=== PATIENT | male | born 1940 | race Two or more races ===

== ENCOUNTER 2020-01-12 16:08 | Inpatient (IN) | payer MEDICARE, OTHER ==
[~2020-01-12] VITALS: Ht 175.3 cm; Wt 60.8 kg
[2020-01-12 16:39] LABS: Basophils # (auto) 0.1 10 ^3/uL (0-0.2); Basophils % (auto) 0.9 % (0.0-2.0); Eosinophils # (auto) 0.3 10 ^3/uL (0-0.8); Eosinophils % (auto) 4.4 % (0.0-7.0); Hematocrit 36.4 % (41.0-53.0); Hemoglobin 12.3 g/dL (13.5-17.5); Lymphocytes # (auto) 0.8 10 ^3/uL (0.4-5.4); Lymphocytes % (auto) 12.4 % (10.0-50.0); Mean Corpuscular Hemoglobin 32.2 pg (28.0-32.0); Mean Corpuscular Hgb Conc. 33.7 g/dL (32.0-36.0); Mean Corpuscular Volume 95.7 fL (80.0-100.0); Monocytes # (auto) 0.5 10 ^3/uL (0-1.3); Monocytes % (auto) 8.2 % (0.0-12.0); Neutrophils # (auto) 4.6 10 ^3/uL (1.6-8.6); Neutrophils % (auto) 74.1 % (37.0-80.0); Nucleated Red Blood Cells % 0.1 %; Platelet Count (auto) 188 10^3/uL (140-450); Red Cell Distribution Width 14.8 % (11.8-14.3); White Blood Cell 6.2 10^3/uL (4.4-10.8)
[2020-01-12 16:59] LABS: Albumin 3.3 g/dL (3.4-5.0); Calcium 8.4 mg/dL (8.5-10.1); Potassium 4.4 mmol/L (3.5-5.1)
[2020-01-12] MEDS ORDERED: TETANUS-DIPTH-ACEL PERTUSSIS 0.5ML SYR Tdap IM ONE (17:00)
[2020-01-12] MEDS ORDERED: KETOROLAC TROMETH 60MG/2ML VIAL IM ONE (17:00)
[2020-01-12] MEDS ORDERED: cefTRIAXone SOD 1,000 MG VL IM ONE (17:00)
[2020-01-12 17:02] LABS: Bilirubin, Total 0.2 mg/dL (0.2-1.0); Total Protein 7.1 g/dL (6.4-8.2)
[2020-01-12] MEDS ORDERED: cefTRIAXone 1GM/50ML D5W 50 ML IV ONE (18:00)
[2020-01-12] MEDS ORDERED: KETOROLAC TROMETH 30 MG/ML 1ML VIAL IV ONE (18:00)
[2020-01-12] MEDS ORDERED: KETOROLAC TROMETH 15 mg/ml 1ML VL IV ONE (18:00)
[2020-01-12] MEDS ORDERED: LIDOCAINE 1% HCL (LOCAL ANESTH.) INJ 20ML MDV ID ONE (18:45)
[2020-01-12] MEDS ORDERED: BACITRACIN TOP OINT 1 UD PKG TOP ONE (19:30)
[2020-01-12] MEDS ORDERED: SODIUM CHLORIDE 0.9% 1,000 ML IV SCH (20:49)
[2020-01-12] MEDS ORDERED: ACETAMINOPHEN 325 MG TAB PO PRN (21:00)
[2020-01-12] MEDS ORDERED: HYDROcodone-ACET 5/325MG TAB PO PRN (21:00)
[2020-01-12] MEDS ORDERED: MORPHINE SULFATE 4 MG/ML SYR/VIAL IV PRN (21:00)
[2020-01-12] MEDS ORDERED: DOCUSATE SOD 100 MG CAP PO PRN (21:00)
[2020-01-12] MEDS ORDERED: ONDANSETRON HCL 4 MG/2 ML VIAL IV PRN (21:00)
[2020-01-12] MEDS ORDERED: DEXTROSE (50%) 50ML SYRG IV PRN (21:30)
--- NOTE | 2020-01-12 21:56 | NUR ---
Telemetry admit from ER DALLASRIDDHI admitted to Telemetry unit after SBAR received. Patient oriented to primary RN, unit, room, bed, and unit policies regarding patient care and visiting hours. Patient now on continuous telemetry monitoring, tele box #34. Weighed by bedscale and encouraged to call if they need something. All questions and concerns addressed, patient verbalized understanding. Bed locked in lowest position and bed rails up x2. Call light within reach.
[2020-01-12 22:10] VITALS: BP 111/64
--- NOTE | 2020-01-12 23:24 | NUR ---
Social service consult Consult placed per protocol. Patient informed this RN that he currently lives with his niece, but through text message she has told him that he is no longer allowed back home once he is discharged. Patient verbalized concern for not having a place to go home to.
--- NOTE | 2020-01-12 23:28 | NUR ---
Home medications Patient unable to remember his home medications. Patient states,"I know I take 7 medications, 2 for my diabetes, one for my stomach acids and I can't remember what else". Patient unable to give names or doses of medications.
[2020-01-13] MEDS: ACCU-CHEK COMFORT CURVE STRIP VI SCH ×7 (01:56→23:39)
--- NOTE | 2020-01-13 01:56 | NUR ---
Patient has pain level of 4 on a scal of 1-10. Mcclure PRN available for pain 4-6, however patient requested Tylenol. Tylenol given PRN medication. Will continue to monitor.
[2020-01-13] MEDS: InsuLIN REG 1unit/0.01ml Soln (100units/ml) SC SCH ×7 (04:58→23:59)
[2020-01-13 05:00] VITALS: BP 93/52
--- NOTE | 2020-01-13 07:00 | NUR ---
RECEIVED REPORT FROM NIGHT RN. PATIENT ALERT AND AWAKE; DENIED PAIN; RESPIRATIONS RELAXED AND EVEN, NON PRODUCTIVE COUGH ALSO WEARING A FACE MASK. LACERATION TO THE POSTERIOR HEAD RONALD REMAIN INTACT EDGES APPROXIMATED, MINIMAL SEROSANGUINEOUS DRAINAGE NOTED. SAFETY: BED IN LOWEST POSITION ALARM ON, CALL LIGHT WITHIN REACH. PATIENT VERBALIZED UNDERSTANDING TO CALL STAFF WITH ANY QUESTIONS OR CONCERNS AND FOR ALL AMBULATION NEEDS.
[2020-01-13 07:43] LABS: Basophils # (auto) 0.1 10 ^3/uL (0-0.2); Basophils % (auto) 0.7 % (0.0-2.0); Eosinophils # (auto) 0.3 10 ^3/uL (0-0.8); Hematocrit 39.3 % (41.0-53.0); Lymphocytes # (auto) 1.5 10 ^3/uL (0.4-5.4); Lymphocytes % (auto) 19.4 % (10.0-50.0); Mean Corpuscular Hemoglobin 31.6 pg (28.0-32.0); Mean Corpuscular Volume 95.6 fL (80.0-100.0); Monocytes # (auto) 0.7 10 ^3/uL (0-1.3); Monocytes % (auto) 9.6 % (0.0-12.0); Neutrophils # (auto) 5.1 10 ^3/uL (1.6-8.6); Neutrophils % (auto) 66.3 % (37.0-80.0); Nucleated Red Blood Cells % 0.1 %; Platelet Count (auto) 210 10^3/uL (140-450); Red Blood Cells 4.12 10^6/uL (4.5-5.90); Red Cell Distribution Width 14.6 % (11.8-14.3); White Blood Cell 7.7 10^3/uL (4.4-10.8)
[2020-01-13 08:49] VITALS: BP 98/49
[2020-01-13 09:38] LABS: BUN/Creatinine Ratio 25.3; Calcium 8.3 mg/dL (8.5-10.1); Potassium 3.8 mmol/L (3.5-5.1)
--- NOTE | 2020-01-13 10:27 | NUR ---
UPDATE FROM FAMILY SPOKE WITH VIOLET PATIENTS SAROJ SHE STATED UPON DISCHARGE PATIENT WILL BE LIVING AT [facility] IN [place] ON THE CASE IS [place]ARY [phone]. SAROJ STATED THERE IS PAPERWORK FOR THE MD TO FILL OUT PRIOR TO DISCHARGE AND SHE WILL BRING IT IN TO THE HOSPITAL.
--- NOTE | 2020-01-13 10:30 | NUR ---
WOUND CARE NOTE: IN TO SEE PATIENT AT THIS TIME PER WOUND CARE CONSULT REQUEST. [facility]IS OF SYNCOPE, UNCONTROLLED DM, HYPERGLYCEMIA, TRAUMA. PATIENT HAS CURRENT ELAINA SCORE OF19. BEDSIDE NURSE NOTED A STAPLED LACERATION WOUND TO THE HEAD. WOUND PHOTO WAS TAKEN AT THAT TIME FOR REFERENCE. PATIENT STATES THAT HE FELL BACK AND HIT HIS HEAD FOLLOWING A SYNCOPAL EPISODE. PATIENT RENDERED WITH A LACERATION TO THE HEAD. WOUND WAS STAPLED WHILE PATIENT STILL IN ER. PATIENT NOTED TO HAVE A WELL APPROXIMATED 8 CM STAPLED LACERATION. WOUND CONTINUES TO OOZE SMALL AMOUNTS OF SEROUS DRAINAGE. CLEANSED WOUND WITH NS, PATTED DRY WITH STERILE GAUZE. APPLY ABDOMINAL PAD OVER WOUND. SECURED WITH SMALL KERLIX, TAPE. PATIENT TOLERATED DRESSING CHANGE WELL, NOTING NO PAIN BY PATIENT. NO OTHER SKIN INTEGRITY ISSUES NOTED AT THIS TIME. RECOMMEND: DAILY PRN DRESSING CHANGE TO HEAD WOUND UNTIL NO LONGER OOZING/DRAINING, THEN LEAVE OPEN TO AIR, DIETARY CONSULT FOR LACERATION, UNCONTROLLED DM, SKIN/WOUND CARE PLAN, CONTINUED MONITORING BY WOUND CARE TEAM. Addendum: 01/13/20 at 1500 by Mayuri Lopez RN Amended: Links added.
[2020-01-13] MEDS: SODIUM CHLORIDE 0.9% 1,000 ML IV SCH ×2 (12:00→18:40)
[2020-01-13 12:46] VITALS: BP 108/56
[2020-01-13 16:43] VITALS: BP 101/54
--- NOTE | 2020-01-13 19:30 | NUR ---
Opening Shift Note Assumed care of patient, awake and alert. No S/S of distress/SOB or pain. Insructed on POC and to callfor assist PRN, will continue to monitor for changes Q1hr and PRN. Fall and safety precautions in place. Call light within reach.
--- NOTE | 2020-01-13 20:00 | NUR ---
ANGEL Abbott at bedside
--- NOTE | 2020-01-13 20:30 | NUR ---
URINE SAMPLE Urine sample obtained and sent to lab via bullet
[2020-01-13 21:19] LABS: Urine Bacteria NONE SEEN /hpf (None Seen); Urine Blood TRACE /uL (Negative); Urine Specific Gravity 1.015 (1.001-1.035); Urine WBC <1 /hpf (0 - 3)
[2020-01-13 21:43] LABS: Alcohol, Urine < 3.0 mg/dL (0-5); Amphetamine Screen, Urine NEGATIVE (NEGATIVE); Barbiturate Scree,Urine NEGATIVE (NEGATIVE); Benzodiazephine Screen, Urine NEGATIVE (NEGATIVE); Cannabinoid Screen, Urine NEGATIVE (NEGATIVE); Cocaine Screen, Urine NEGATIVE (NEGATIVE); Opiate Scree,Urine NEGATIVE (NEGATIVE); Phencyclidine Screen, Urine NEGATIVE (NEGATIVE)
[2020-01-13 22:00] VITALS: BP 110/53
--- NOTE | 2020-01-13 22:00 | NUR ---
SCD SCD machine and sleeves applied to bilateral lower legs per MD order
--- NOTE | 2020-01-13 23:30 | NUR ---
IV insertion IV access obtained, via clean sterile technique by inserting 20 gauge catheter at LFA after first attempt. IV secured properly. No trauma to site. Patient tolerated well. IV removal IV DC'd with clean sterile technique, catheter fully intact. Pressure dressing applied to site. Patient tolerated well. NOTE: RAC 22g removed due to leaking
[2020-01-14] MEDS: SODIUM CHLORIDE 0.9% 1,000 ML IV SCH ×4 (03:57→22:26)
[2020-01-14] MEDS: InsuLIN REG 1unit/0.01ml Soln (100units/ml) SC SCH ×6 (04:00→23:26)
[2020-01-14] MEDS: ACCU-CHEK COMFORT CURVE STRIP VI SCH ×6 (04:10→23:26)
--- NOTE | 2020-01-14 04:10 | NUR ---
BLOOD SUGAR Patient's blood sugar at this time was 66. Patient educated on signs and symptoms of hypoglycemia, denies any at this time. Patient given snacks and juice, instructed to eat and drink now. Patient verbalized understanding and agreement. Will continue to monitor
[2020-01-14 05:00] VITALS: BP 103/62
[2020-01-14 06:38] LABS: Calcium 7.3 mg/dL (8.5-10.1); Potassium 4.3 mmol/L (3.5-5.1)
[2020-01-14 06:40] LABS: BUN/Creatinine Ratio 23.8
--- NOTE | 2020-01-14 07:00 | NUR ---
RECEIVED REPORT FROM NIGHT RN. PATIENT ALERT AND AWAKE; DENIED PAIN; RESPIRATIONS RELAXED AND EVEN, NON PRODUCTIVE COUGH ALSO WEARING A FACE MASK. LACERATION TO THE POSTERIOR HEAD RONALD REMAIN INTACT EDGES APPROXIMATED, NO DRAINAGE NOTED. SAFETY: BED IN LOWEST POSITION ALARM ON, CALL LIGHT WITHIN REACH. PATIENT VERBALIZED UNDERSTANDING TO CALL STAFF WITH ANY QUESTIONS OR CONCERNS AND FOR ALL AMBULATION NEEDS.
[2020-01-14 08:45] VITALS: BP_SYST 118; BP_SYST 119; BP_SYST 132; BP_DIAS 55; BP_DIAS 56
[2020-01-14 09:00] VITALS: BP 105/53
--- NOTE | 2020-01-14 09:10 | NUR ---
Received Social Service consult due to his pt's belief that the niece will not let pt stay. He states that she is afraid of the pt bring home the Covid 19. The pt has dementia although did answer questions appropriately. According to family, pt at times gets irritated. Pt is in agreement in moving out the house. The niece is looking for a facility.
[2020-01-14 09:23] LABS: Magnesium 1.9 mg/dL (1.6-2.6)
[2020-01-14 09:54] LABS: Folate (Folic Acid) 21.19 ng/mL (5.38-24)
[2020-01-14] MEDS: NICOTINE 7MG/24HR TOPICAL PATCH TD SCH (10:00)
--- NOTE | 2020-01-14 11:45 | NUR ---
TAKEN TO MRI VIA WC.
--- NOTE | 2020-01-14 11:49 | NUR ---
CASE MANAGEMENT UPDATED JESI YBARRA PATIENT WILL BE GOING TO [facility] UPON DISCHARGE CLINICAL RESEARCH SCIENTIST IS OLIMPIA [phone] SHE WILL UPDATE S.S.
--- NOTE | 2020-01-14 12:30 | NUR ---
RETURNED FROM MRI.TOLERATED WELL; NO DISTRESS NOTED PATIENT DENIED PAIN
--- NOTE | 2020-01-14 13:00 | NUR ---
REORIENTATION OF SAFETY PATIENT FOUND PACING NEXT TO THE BED TOUCHING THE WINDOW; RE-EDUCATED PATIENT TO REMAIN IN BED WHILE WEARING SCDS AND THAT HE IS A FALL RISK; WHEN ASKED WHY ARE YOU TOUCHING THE WINDOW HE STATED " IM JUMPING OUT TO SMOKE A CIGARETTE, JUST KIDDING" THEN LAUGHED IT OFF AND GOT BACK IN BED.WILL CONTINUE TO MONITOR. DR ORTIZ IS AWARE.
--- NOTE | 2020-01-14 13:45 | NUR ---
Social service consult for pt states his niece will not allow him back home once he is discharge. Spoke with pt who states his niece is very scared of the covid 19 and does not want anyone who leaves the house to come back. The pt has stated he has a place to go. However, he is afraid that she will not all him to retrieve his belongs. construction worker stated that the professor of geology can come out to the house and wait until he moves his belongings out. Otherwise pt states he will start legal proceedings against his aunt. Addendum: 01/14/20 at 1717 by RACHEL PERALTA Amended: Links added.
--- NOTE | 2020-01-14 14:00 | NUR ---
POWER OF HAZARDOUS MATERIALS TANKER DRIVER AND DISCHARGE PLAN THIS RN S/W PATIENTS JAYME LAZO [phone]. ARRANGEMENTS HAVE BEEN MADE FOR PATIENT TO GO TO [facility] AFTER DISCHARGE (DIRECTOR: OLIMPIA [phone]. PER NIECE PATIENTS MEMORY HAS DECLINED SIGNIFICANTLY SINCE MAY 2019 FOLLOWING THE OF HIS BROTHER AND HE CONTINUES TO MAKE POOR AND UNSAFE DECISION. PATIENTS BROTHER AND FATHER POSITIVE HISTORY FOR DEMENTIA AND ALZHEIMERS SEP 2019 DRIVERS LICENSE REVOKED BY THE DMV THE RAIL CAR WELDER JENNA AT [facility] [phone] INITIATED THIS BECAUSE THE PATIENT BECAME DISORIENTED AND LOST IN THE PARKING LOT, A FAMILY MEMBER HAD TO PICK HIM UP. EVERY TRIP TO THE GROCERY STORE THE PATIENT BECOMES DISORIENTED AND GETS LOST WITHIN MINUTES OF ARRIVING. FRANKLIN LAZO REPORTED THAT A FEW HOURS PRIOR TO THE PATIENT FALLING AND SUSTAINING A LACERATION ON 01/12/20 HE WAS AGITATED AND VERBALLY ABUSIVE D/T BEING INSTRUCTED TO STAY INSIDE AND NOT GO OUTSIDE TO SMOKE A CIGARETTE; SHE STATED " THE CONCRETE OUTSIDE IS SLIPPERY AND HE IS VERY UNSTEADY ON HIS FEET" THE PATIENT THEN PROCEEDED AND JUMPED OUT OF THE BEDROOM WINDOW TO SMOKE A CIGARETTE. A FEW HOURS LATER HE SUSTAINED A FALL AND WAS ADMITTED TO [facility]. SHE IS CONCERNED FOR HIS SAFETY; NO OTHER FAMILY MEMBER IS WILLING TO TAKE CARE OF THE PATIENT BECAUSE OF HIS EPISODES OF AGITATION AND RECURRENT CHRONIC COUGH.
--- NOTE | 2020-01-14 15:03 | NUR ---
NUTRITION ASSESSMENT NOTES Please refer to link notes of nutrition screen form filed under the intervention section of the plan of care for further details. Est. Energy Needs: 4953-8203 kcal ( 27-28 kcal/kg BW). Est. Protein Needs: 68-85 gms/day ( 1.2-1.5 gms/kg BW). Will continue to monitor pertinent labs and reassess nutrient need prn Addendum: 01/14/20 at [address] Amended: Links added.
--- NOTE | 2020-01-14 15:45 | NUR ---
BANK FAX INFO PATIENT HANDED THIS RN HIS BEDSIDE PHONE TO SPEAK WITH A LENS MARKER. PATIENT VERBALLY CONFIRMED SHE HAS POWER OF HOT POND OPERATOR FOR BOTH MEDICAL AND FINANCIAL. NOW THE PATIENTS WANTS IT REVOKED. PATIENT IS OBVIOUSLY ANXIOUS AND UPSET THE NIECE IS MAKING ARRANGEMENTS FOR HOUSING FOR THE PATIENT HE STATED " SHE IS STEALING FROM ME I DONT WANT TO GO THERE WHERE SHE IS SENDING ME I HAVE CAR KEYS AND I WILL DRIVE MYSELF WHERE I WANT TO GO!" PATIENT REORIENTED TO THE FACT HE CANNOT LEGALLY DRIVE HE STATED " LOOK I HAVE KEYS I CAN DRIVE". PROVIDED GENTLE REORIENTATION AND PATIENT WAS COMFORTABLE. S/W CHRISSY AT PATIENTS Inventalator [phone] EXT [phone] # [phone]. SHE STATED THAT THE Inventalator WILL NEED A DOCUMENT SIGNED BY THE DOCTOR STATING THE PATIENT IS UNABLE TO MAKE DECISIONS FOR HIMSELF, DR ORTIZ UPDATED AND MADE AWARE OF ALL.
--- NOTE | 2020-01-14 15:54 | NUR ---
Pt's niece is currently, making arrangements for this pt to go [facility].
--- NOTE | 2020-01-14 16:00 | NUR ---
DR ORTIZ BEDSIDE UPDATED ON PATIENTS MEMORY LOSS AND EPISODES OF AGITATION, MD STATES HE WILL CALL THE FAMILY.
[2020-01-14 17:00] VITALS: BP 109/55
--- NOTE | 2020-01-14 19:04 | NUR ---
endorsed care to night rn
[2020-01-14 21:53] VITALS: BP 103/58
[2020-01-14] MEDS: ATORVASTATIN 20 MG TAB PO SCH (22:18)
[2020-01-15] VITALS (7 sets, daily range): BP systolic 103–130; BP diastolic 49–58
[2020-01-15] MEDS: InsuLIN REG 1unit/0.01ml Soln (100units/ml) SC SCH ×5 (03:55→20:47)
[2020-01-15] MEDS: SODIUM CHLORIDE 0.9% 1,000 ML IV SCH ×4 (03:55→17:23)
[2020-01-15] MEDS: ACCU-CHEK COMFORT CURVE STRIP VI SCH ×5 (03:55→20:36)
[2020-01-15 06:01] LABS: Calcium 7.4 mg/dL (8.5-10.1); Potassium 3.9 mmol/L (3.5-5.1)
--- NOTE | 2020-01-15 07:40 | NUR ---
Opening Shift Note Assumed care of patient. Patient is awake and alert, resting in bed. No S/S of respiratory distress noted. Respirations are regular and non-labored. patient reports no pain, nausea, or vomiting. bed in lower position and locked, rails up X2, call light within reach, urinal at bedside. patient is on RA with SpO2 96%. POC discussed and patient instructed to call for assistance PRN. will continue to monitor for changes Q1hr and PRN.
--- NOTE | 2020-01-15 09:30 | NUR ---
SPOKE WITH WOOD MODEL MAKER TEST WILL BE PERFORMED TODAY SOMETIME. INFORMED TECH THAT PATIENT IS PENDING DISCHARGE UPON COMPLETION OF TEST.
[2020-01-15] MEDS: NICOTINE 7MG/24HR TOPICAL PATCH TD SCH (10:00)
--- NOTE | 2020-01-15 14:48 | NUR ---
re-assessment Per consult home health safety eval and vitals. Per Estela patients POA patient is on service with [facility] and she wants patient to resume with them. order sent to [email or web address]. Per Jake service will resume on 01/16/20. I also informed Jake patient is moving into [facility] correction. Jake verbalized understanding. Estela has been notified. Addendum: 01/15/20 at 1451 by Mary Chang Amended: Links added.
--- NOTE | 2020-01-15 17:33 | NUR ---
METAL ENGINEERING PROCESS WORKER PAGED Addendum: 01/15/20 at 1734 by Gillian Beasley RN REGARDING CONFIRMATION OF TEST BEING COMPLETED TODAY.
--- NOTE | 2020-01-15 17:54 | NUR ---
SPOKE WITH BLAST FURNACE AUXILIARIES SUPERVISOR. TECH STATES THAT PER DR ORTIZ EEG CAN BE COMPLETED TOMORROW IF PATIENT IS STILL HERE. DR. ORTIZ WAS PAGED FOR CLARIFICATION.
--- NOTE | 2020-01-15 18:07 | NUR ---
SPOKE WITH DR. ORTIZ. EEG WILL BE PERFORMED TOMORROW.
[2020-01-15] MEDS: ATORVASTATIN 20 MG TAB PO SCH (20:37)
--- NOTE | 2020-01-16 00:05 | NUR ---
BLOOD SUGAR Checked patient's blood sugar at this time; 30. Rechecked; 39. Patient awake and oriented x4, denies symptoms of hypoglycemia. Snacks given to patient and Dextrose administered (see emar). Will recheck patient's blood sugar at 0400.
[2020-01-16] MEDS: InsuLIN REG 1unit/0.01ml Soln (100units/ml) SC SCH ×5 (00:08→16:00)
[2020-01-16] MEDS: ACCU-CHEK COMFORT CURVE STRIP VI SCH ×5 (00:08→16:00)
--- NOTE | 2020-01-16 00:20 | NUR ---
IV insertion IV access obtained, via clean sterile technique by inserting 20 gauge catheter at LFA after first attempt. IV secured properly. No trauma to site. Patient tolerated well. IV removal IV DC'd with clean sterile technique, catheter fully intact. Pressure dressing applied to site. Patient tolerated well. NOTE: LFA 20g removed due to leaking
[2020-01-16] MEDS: SODIUM CHLORIDE 0.9% 1,000 ML IV SCH ×3 (00:34→13:20)
--- NOTE | 2020-01-16 03:53 | NUR ---
BLOOD SUGAR Patient's blood sugar checked at this time; 160. Insulin held due to prior blood sugar check of 30. Patient resting quietly, no distress noted. Will continue to monitor
[2020-01-16 05:21] VITALS: BP 109/54
[2020-01-16 06:19] LABS: Potassium 4.5 mmol/L (3.5-5.1)
[2020-01-16 06:28] LABS: BUN/Creatinine Ratio 19.4; Calcium 7.1 mg/dL (8.5-10.1)
--- NOTE | 2020-01-16 08:00 | NUR ---
ASSESSMENT NOTE PT IS ALERT, ORIENTED X4, TO PLACE , PERSON AND SITUATION, AWARE OF EVERYTHING AND SURROUNDINGS, SELF REPOSITION NEEDED, PAIN 0/10, LOOKING FORWARD TO GO HOME
--- NOTE | 2020-01-16 08:45 | NUR ---
DR BE AT BED SIDE FOLLOWING UP ON PT WITH DISCHARGE HOME ORDERS, PT VERBALIS UNDERSTANDING
[2020-01-16 09:00] VITALS: BP 103/58
--- NOTE | 2020-01-16 09:00 | NUR ---
PT STATED MY NIECE IS CRAZY, SHE SAID THAT I HAVE COVID AND I DON'T, I CAN NOT WAIT TO LEAVE AND TAKE HER OUT OF THE POWER CERTIFIED MEDICAL TECHNICIAN ASSISTANT??
[2020-01-16] MEDS: NICOTINE 7MG/24HR TOPICAL PATCH TD SCH (10:00)
--- NOTE | 2020-01-16 10:11 | NUR ---
CARGO AND RAMP SERVICES MANAGER AT BED SIDE, PT TOLERATING THE PROCEDURE WELL
[2020-01-16 13:00] VITALS: BP 110/51
--- NOTE | 2020-01-16 14:00 | NUR ---
PAGE DR ORTIZ SAID THE RESUKTS WILL BE AVAILABLE BY 4 PM
--- NOTE | 2020-01-16 15:25 | NUR ---
EEG- ELECTROENCEPHALOGRAM COMPLETED ON 01/16/2020
--- NOTE | 2020-01-16 15:55 | NUR ---
PAGE DR ORTIZ TO OBTAIN THE EE RESULTS
--- NOTE | 2020-01-16 16:08 | NUR ---
DR ORTIZ CALLED BACK SAID THAT HE CAN NOT READ THE RESULTS NOW, BUT PT CAN GO HOME
--- NOTE | 2020-01-16 16:11 | NUR ---
SPOKE WITH PATIENT'S NEPHEW MELVIN SAID THAT HE WILL AEROSPACE TECHNICIAN PT AT [id number]
--- NOTE | 2020-01-16 16:35 | NUR ---
PATIENT CONTINUE TO BE ALERT, ORIENTED, TO TIME, PERSON, PLACE, SITUATION, ABLE TO MAKE HIS OWN DECISIONS INDEPENDENTLY, ABLE USE HIS OWN CRITICAL THINKING, FOLLOW COMMANDS, CALM, NO DISTRESS NOTED, VITAL SIGNS STABLE AT ALL TIMES,ORIENTED TO THE CALL LIGHT
[2020-01-16 16:41] VITALS: BP 125/65
--- NOTE | 2020-01-16 16:55 | NUR ---
Discharge instructions given as ordered. Encourage to follow up with PMD as instructed. All questions and concerns addressed. Patient verbalized understanding. Medication reconciliation form completed and copy given to patient. Home medications held in Pharmacy returned to patient, and needed vaccines given. IV removed with catheter intact, pressure dressing applied. Telemetry unit returned to ICU. Patient taken to vehicle via wheelchair with all personal belongings, accompanied by staff and family member. No distress noted at time of departure.
== END 2020-01-16 16:55 | disposition home health service (06) | DRG 641 ==
LOC: ER 16:08 → EDBD 16:08 → TELE 16:09 → TELE-CENTR 22:02
PROVIDERS: ADMIT Hospitalist; ATTEND Family Medicine
PROC: 0HQ0XZZ Repair Scalp Skin, External Approach (ICD-10-PCS; principal; 2020-01-12)
DX: E86.0 Dehydration (principal); I50.32 Chronic diastolic (congestive) heart failure; N17.9 Acute kidney failure, unspecified; S01.01XA Laceration without foreign body of scalp, initial encounter; E11.65 Type 2 diabetes mellitus with hyperglycemia; D64.9 Anemia, unspecified; I45.10 Unspecified right bundle-branch block; W18.39XA Other fall on same level, initial encounter; N18.3 Chronic kidney disease, stage 3 (moderate); K21.9 Gastro-esophageal reflux disease without esophagitis; Z90.49 Acquired absence of other specified parts of digestive tract; Z79.899 Other long term (current) drug therapy; Z79.4 Long term (current) use of insulin; Y93.89 Activity, other specified; Y92.89 Other specified places as the place of occurrence of the external cause; Y99.8 Other external cause status; Z71.6 Tobacco abuse counseling
CPT/HCPCS: 36415; 70450; 70551; 71045; 72125; 80048; 80053; 80061; 80307; 81001; 82607; 82746; 82962; 83036; 83735; 83880; 84443; 84484; 85025; 90471; 90715; 93005; 93306; 93886; 95819; 96365; 96375; G0378; J0696; J1815; J1885; J2001

== ENCOUNTER 2020-01-23 12:10 | Emergency (ER) | payer MEDICARE, OTHER ==
[~2020-01-23] VITALS: Ht 175.3 cm; Wt 52.2 kg
[2020-01-23 12:22] VITALS: BP 111/62
== END 2020-01-23 13:56 | disposition home or self-care (01) ==
LOC: ER 12:10
DX: S01.01XD Laceration without foreign body of scalp, subsequent encounter (principal); R55 Syncope and collapse; E11.9 Type 2 diabetes mellitus without complications; K21.9 Gastro-esophageal reflux disease without esophagitis; F17.210 Nicotine dependence, cigarettes, uncomplicated; Z90.49 Acquired absence of other specified parts of digestive tract; X58.XXXD Exposure to other specified factors, subsequent encounter